=== PATIENT | male | born 1985 | race Caucasian/White ===

== ENCOUNTER 2017-04-07 11:49 | Emergency (ER) | payer MEDICAID ==
[~2017-04-07] VITALS: Ht 157.5 cm; Wt 109.1 kg
[~2017-04-07 11:49] MED LIST: DOCU-144 PO; HYDR-902 PO
[2017-04-07 11:56] VITALS: Ht 157.5 cm; Wt 109.1 kg
[2017-04-07] MEDS ORDERED: LIDOCAINE 1% (MDV) 10 ML INJ INJ STA (12:15)
--- NOTE | 2017-04-07 12:27 | ERD ---
ER Documentation Chief Complaint Date/Time DATE: 04/07/17 TIME: 12:24 Chief Complaint LEFT FINGER LACERATION HPI 31-year-old male who is right-hand dominant presents with an avulsion injury to his left third digit from the machine laceration. Patient states that there is localized pain as sharp, nonradiating, worse in movement and better at rest. He denies paresthesias or weakness. His last tetanus shot was within the last 2 years. ROS All systems reviewed and are negative except as per history of present illness. Medications Home Meds Active Scripts Cephalexin* (Keflex*) 500 Mg Capsule, 500 MG PO QID for 5 Days, CAP Prov:KEMI SUN PA-C 04/07/17 Docusate Sodium* (Colace*) 100 Mg Capsule, 100 MG PO TID, #30 CAP Prov:JCARLOS PATEL MD 04/08/16 Hydrocodone/Acetaminophen ([place] 10-325 Tablet) 1 Each Tablet, 1 TAB PO Q6H Y for PAIN, #7 TAB Prov:JCARLOS PATEL MD 04/08/16 Allergies Allergies: Coded Allergies: No Known Allergy (Unverified , 04/08/16) PMhx/Soc Hx Alcohol Use: No Hx Substance Use: No Hx Tobacco Use: No Physical Exam Vitals Vital Signs Date Time Temp Pulse Resp B/P Pulse Ox O2 Delivery O2 Flow Rate FiO2 04/07/17 11:56 99.5 96 19 140/99 100 Physical Exam General: Well-developed, well-nourished. The patient appears in no acute distress. HEENT: Head is normocephalic, atraumatic. No scleral icterus. Neck: Supple. Nontender. Lungs: Clear to auscultation. Normal air movement. Heart: Regular rate and rhythm. S1 and S2 are normal. No murmurs, gallops, or rubs. Abdomen: Nondistended. Extremities: lateral left fouth digit finger tip avulsion laceration that is 1.5 cm, mild active oozing of blood. Nail bed is intact, full ROM of dip, mcp and pip joint. Neurologic: Alert and oriented 3. No focal deficits. Normal speech and gait. Skin: Normal turgor. No rash or lesions. Results 24 hrs Current Medications Medications (Trade) Dose Ordered Sig/Adri Route PRN Reason Start Time Stop Time Status Last Admin Dose Admin Lidocaine HCl (Lidocaine 1% (Mdv) 10 ml) 10 ml ONCE STAT INJ 04/07/17 12:15 04/07/17 12:19 DC Acetaminophen/ Hydrocodone Bitart ([place] (5/325)) 1 tab ONCE ONCE PO 04/07/17 12:30 04/07/17 12:31 DC 04/07/17 12:51 Procedures/MDM Laceration Repair by me: Patient was verbally consented Anesthesia: 1% lidocaine locally Location: Left fourth digit Tendon/Joint/Nerves: No injury Foreign body: None detected after copious irrigation and exploration Technique: Figure of 8 suture Complexity: No subcutaneous sutures/mucosal repair/ edge excision Post Closure Length: 1.5 cm Patient's bleeding was easily controlled in the department and there is no indication of anemia. No evidence of compartment syndrome, neurologic injury, vascular injury, open joint, tendon laceration, or foreign body. Patient is appropriate for outpatient follow up. 48 hour wound check. Scar minimization instructions given. X-rays of left fourth digit initially were obtained that shows a round foreign body at the DIP of the left fourth digit, this is most likely artifact, it was only seen on one view on the lateral view, as it was repeated known there was no evidence of a foreign body seen on the lateral view. MDM: 31-year-old male presents with an avulsion laceration to the left fourth digit. There was active bleeding, this was stopped with a [id number] stitch. There is a 1.5 cm avulsion laceration of the lateral aspect of the finger. Wound was covered with Surgicel dressing, patient will be covered with Keflex. There is no evidence of acute fracture, tendon laceration. He is to recheck the wound in 2 days. Departure Diagnosis: Primary Impression: Laceration Condition: KEMI Ndiaye PA-C Apr 07, 2017 12:27
[2017-04-07] MEDS ORDERED: HYDROCODONE/APAP (5/325) TAB PO ONE (12:30)
--- NOTE | 2017-04-07 13:04 | RADRPT ---
PROCEDURE: XR Finger. CLINICAL INDICATION: Soft tissue injury TECHNIQUE: Three views of the left fourth finger. COMPARISON: None. FINDINGS: There are no fractures or dislocations. Soft tissue injury to the left fourth digit finger tip is noted. There may be a 3 mm, round, radiopa que foreign body adjacent to the distal tuft. IMPRESSION: No fracture or dislocation. Soft tissue injury to the left fourth digit finger tip with a 3 mm round , radiopaque foreign body adjacent to the distal tuft. RPTAT: EE .Indira Garcia MD, Date Time Electronically viewed and signed by .Indira Garcia MD, on 04/07/2017 13:04 .F/
[2017-04-07] MEDS ORDERED: CEPH-443 PO (13:47)
[2017-04-07 15:48] VITALS: BP 122/68; PULSE 71; RESP 18; TEMP 98.5
--- NOTE | 2017-04-07 16:03 | RADRPT ---
PROCEDURE: XR finger CLINICAL INDICATION: Pain TECHNIQUE: AP, oblique and lateral views of the left fourth digit were obtained. COMPARISON: No prior studies are available for comparison. FINDINGS: The bones of the hand appear intact, with no evidence of fracture, dislocation, or subluxation. The joint spaces are preserved. Bone mineralization is normal. Soft tissue injury is present along the distal tip of the fourth digit. There are no radiopaque foreign bodies. IMPRESSION: No acute bony abnormality. Soft tissue injury along the distal fourth digit. The previously identifi ed radiopaque foreign body is not identified. RPTAT: QQ .Jackie Tran MD, MD Date Time Electronically viewed and signed by .Jackie Tran MD, on 04/07/2017 16:02 ./
== END 2017-04-07 15:50 | disposition home or self-care (01) ==
LOC: FTE 11:49
DX: S61.215A Laceration without foreign body of left ring finger without damage to nail, initial encounter (principal); W22.8XXA Striking against or struck by other objects, initial encounter; Y92.9 Unspecified place or not applicable
CPT/HCPCS: 12001; 73140; Z7502; Z7610